=== PATIENT | female | born 1965 | race Hispanic/Latino ===

== ENCOUNTER 2018-10-22 09:47 | Emergency (ER) | payer OTHER ==
[2018-10-22] MEDS ORDERED: Amoxicillin-Clav 875-125 mg Tab PO STA (10:03)
--- NOTE | 2018-10-22 10:08 | C.PDOC ---
History Of Present Illness 53 y/o female presents to the ED complaining she felt a pop in her right ear 3 days ago. Since then she has developed swelling near the ear. She denies any trauma or direct injury. Patient otherwise has no hearing loss, fever, or chills. She now complains of the ear feeling tight. Time Seen by Provider: 10/22/18 09:58 Chief Complaint (Nursing): ENT Problem History Per: Patient History/Exam Limitations: None Onset/Duration Of Symptoms: Days (x 3) Quality (Ear): Pain W/Touch, Swelling Symptoms Have Been: Continuous Past Medical History Reviewed: Historical Data, Nursing Documentation, Vital Signs Vital Signs: Last Vital Signs Temp 97.3 F L 10/22/18 09:54 Pulse 78 10/22/18 09:54 Resp 16 10/22/18 09:54 BP 170/101 H 10/22/18 09:54 Pulse Ox 98 10/22/18 09:54 - Medical History PMH: HTN Family History: States: No Known Family Hx - Social History Hx Tobacco Use: Yes Hx Alcohol Use: No Hx Substance Use: No Review Of Systems Except As Marked, All Systems Reviewed And Found Negative. Constitutional: Negative for: Fever, Chills Eyes: Negative for: Vision Change ENT: Positive for: Ear Pain (right), Other (Swelling near right ear) Respiratory: Negative for: Cough, Shortness of Breath Neurological: Negative for: Headache, Dizziness Physical Exam - Physical Exam Appears: Non-toxic, No Acute Distress Skin: Warm, Dry, No Rash Head: Atraumatic, Normacephalic Eye(s): bilateral: Normal Inspection, PERRL, EOMI Ear(s): Left: Normal, Right: Other (Erythema and slight swelling to the right outer ear, No mastoid tenderness, No crepitus; Right TM clear and external canal clear) Oral Mucosa: Moist Neck: Supple Lymphatic: Adenopathy (+ pre-auricular lymph node, right side) Respiratory: No Accessory Muscle Use, Other (No respiratory distress) Extremity: Bilateral: Atraumatic, Normal ROM Pulses: Left Radial: Normal, Right Radial: Normal Neurological/Psych: Oriented x3, Normal Speech, Normal Cranial Nerves ED Course And Treatment O2 Sat by Pulse Oximetry: 98 (RA) Pulse Ox Interpretation: Normal Medical Decision Making Medical Decision Making: Impression: Cellulitis Plan: Patient will be discharged home with rx for Augmentin to go home with. Initial dose given in the ED. Patient advised to follow up with Dr. Yuen within 2 days Disposition Counseled Patient/Family Regarding: Diagnosis, Need For Followup, Rx Given - Disposition Referrals: Karri Yuen MD [Staff Provider] - Disposition: HOME/ ROUTINE Disposition Time: 10:06 Condition: STABLE Additional Instructions: follow up with Dr. Yuen within 2 days call to make an appointment take medications as prescribed return to ER if symptoms worsens or progress Prescriptions: Amoxicillin/Clavulanate [Augmentin 875 MG-125 MG] 1 tab PO BID #20 tab Instructions: Cellulitis (Skin Infection), Adult (DC) Forms: [employer] (Greenlandic), General Discharge Instructions - Clinical Impression Clinical Impression: Cellulitis - Scribe Statement The provider has reviewed the documentation as recorded by the Kayley [place] Provider Attestation: All medical record entries made by the Kayley were at my direction and personally dictated by me. I have reviewed the chart and agree that the record accurately reflects my personal performance of the history, physical exam, medical decision making, and the department course for this patient. I have also personally directed, reviewed, and agree with the discharge instructions and disposition.
[2018-10-22 10:49] VITALS: BP 170/101; PULSE 78; RESP 16; TEMP 97.3; O2SAT 98
== END 2018-10-22 10:13 | disposition home or self-care (01) ==
LOC: C.ER 09:47
DX: H60.11 Cellulitis of right external ear (principal)

== ENCOUNTER 2018-10-25 10:56 | Emergency (ER) | payer OTHER ==
[2018-10-25 11:02] VITALS: BP 169/112; PULSE 69; RESP 16; TEMP 98.7; O2SAT 100
--- NOTE | 2018-10-25 11:49 | C.PDOC ---
History Of Present Illness 53 y/o female reports to the ED with complaints of lesions behind the ear despite being on antibiotics. Pt was seen in ED on October 22 for lesions of the right ear since October 19. She states that she noticed a pop sensation in the ear and then developed pain, redness, and swelling. She denies any hearing loss, tinnitus, vertigo, or discharge. She later developed "swelling" in the ear with prompted her to visit ED and was dx with cellulitis of the right ear. Pt was prescribed Augmentin and referred to see Dr. Yuen within 2 days. Pt notes she has yet to see Dr. Yuen and is concerned that the infection is spreading and is now located post auricular. Pt still denies hearing loss, ringing, vertigo, discharge, fever, chills any recent illness. Upon questioning, she admits to having chicken pox as a child and has not been vaccinated for shingles. Time Seen by Provider: 10/25/18 11:01 Chief Complaint (Nursing): ENT Problem History Per: Patient History/Exam Limitations: None Onset/Duration Of Symptoms: Days (x6) Current Symptoms Are (Timing): Still Present Quality (Ear): Pain W/Touch, Redness, Swelling. denies: Discharge, Foreign Body Past Medical History Reviewed: Historical Data, Nursing Documentation, Vital Signs Vital Signs: Last Vital Signs Temp 98.7 F 10/25/18 10:58 Pulse 69 10/25/18 10:58 Resp 16 10/25/18 10:58 BP 169/112 H 10/25/18 10:58 Pulse Ox 100 10/25/18 10:58 - Medical History PMH: HTN Family History: States: No Known Family Hx - Social History Hx Tobacco Use: Yes Hx Alcohol Use: No Hx Substance Use: No Review Of Systems Constitutional: Negative for: Fever, Chills, Other (recent illness) ENT: Negative for: Other (hearing loss, ringing, discharge) Skin: Positive for: Lesions (behind right ear ) Neurological: Negative for: Other (vertigo ) Physical Exam - Physical Exam Appears: Well, Non-toxic, No Acute Distress Skin: Warm, Dry, Rash (only behind right ear, no other rashes noted anywhere else) Head: Normacephalic Eye(s): bilateral: Normal Inspection, PERRL, EOMI Ear(s): Right: Other (erythematous vesicles on the pinna; non-erythematous vesicles post-auricular ), Bilateral: Normal (TM intact; non-erythematous) Nose: Normal Oral Mucosa: Moist Tongue: Normal Appearing Lips: Normal Appearing Throat: Normal, No Erythema, No Exudate Neck: Normal ROM, Supple Chest: Symmetrical Cardiovascular: Rhythm Regular Respiratory: Normal Breath Sounds ED Course And Treatment O2 Sat by Pulse Oximetry: 100 (RA) Pulse Ox Interpretation: Normal Medical Decision Making Medical Decision Making: Dx: shingles Pt is given valtrex 1 gram tid for 10 days Pt instructed to continue Augmentin and f/u with PCP and/or Dr. Yuen in 1-2- days for further management. Pt verbalized understanding and is in agreement with plan. Pt is stable for d/c. Disposition Counseled Patient/Family Regarding: Diagnosis, Need For Followup, Rx Given - Disposition Referrals: Karri Yuen MD [Staff Provider] - Disposition: HOME/ ROUTINE Disposition Time: 11:47 Condition: STABLE Additional Instructions: Continue Augmentin Start Valtrex three times a day for 7 days Tylenol or Motrin for pain Follow up with PCP and/ or Dr. Yuen in 1-2 days Prescriptions: valACYclovir [Valtrex] 1 gm PO TID #30 tab Instructions: Shingles (DC) Forms: [email or web address] (Tunisian) - Clinical Impression Clinical Impression: Shingles rash - PA / FINANCIAL MANAGER / Resident Statement / has reviewed & agrees with the documentation as recorded. - Scribe Statement The provider has reviewed the documentation as recorded by the Kayley Larry Do All medical record entries made by the Scribe were at my direction and personally dictated by me. I have reviewed the chart and agree that the record accurately reflects my personal performance of the history, physical exam, medical decision making, and the department course for this patient. I have also personally directed, reviewed, and agree with the discharge instructions and disposition.
== END 2018-10-25 12:04 | disposition home or self-care (01) ==
LOC: C.ER 10:56
DX: B02.9 Zoster without complications (principal)